=== PATIENT | male | born 1945 | race Asian ===

== ENCOUNTER 2017-12-20 20:21 | Inpatient (IN) | payer MEDICARE ==
[~2017-12-20] VITALS: Ht 165.1 cm; Wt 88.9 kg
[2017-12-20 20:21] VITALS: BP_SYST 150
[2017-12-20] MEDS ORDERED: NACL 0.9% 1,000 ML IV ONE (20:30)
[2017-12-20] MEDS ORDERED: MORPHINE 4 MG/ML INJ. SYRINGE IVP ONE (20:30)
[2017-12-20] MEDS ORDERED: NOR10 PO (20:49)
[2017-12-20] MEDS ORDERED: LISI-600 PO (20:49)
[2017-12-20] MEDS ORDERED: METF1000 PO (20:49)
[2017-12-20] MEDS ORDERED: LOVA20TA2 PO (20:49)
[2017-12-20] MEDS ORDERED: METO25TA6 PO (20:49)
[2017-12-20 20:56] LABS: BASOPHILS % (AUTO) 0.4 % (0.0-2.0); EOSINOPHILS # (AUTO) 0.2 K/uL (0.0-0.4); EOSINOPHILS % (AUTO) 2.1 % (0.0-4.0); HEMATOCRIT 35.9 % (36-54); HEMOGLOBIN 12.4 g/dL (14.0-18.0); LYMPHOCYTES # (AUTO) 1.7 K/uL (1.0-5.5); LYMPHOCYTES % (AUTO) 17.7 % (20.5-51.5); MEAN CORPUSCULAR HEMOGLOBIN 27 pg (27-31); MEAN CORPUSCULAR HGB CONC 34 % (32-36); MEAN CORPUSCULAR VOLUME 79 fL (79.0-98.0); MONOCYTES # (AUTO) 0.8 K/uL (0.0-1.0); MONOCYTES % (AUTO) 8.7 % (1.7-9.3); NEUTROPHILS # (AUTO) 7.1 K/uL (1.8-7.7); NEUTROPHILS % (AUTO) 71.1 % (40.0-70.0); PLATELET COUNT (AUTO) 285 K/uL (130-430); RED BLOOD CELL COUNT(AUTO) 4.58 MIL/uL (4.2-6.2); RED CELL DISTRIBUTION WIDTH 14.1 % (9.0-15.0); WHITE BLOOD COUNT (AUTO) 9.8 K/uL (4.8-10.8)
[2017-12-20 21:07] LABS: ANION GAP 9 (5-15); CALCIUM 9.5 mg/dL (8.4-11.0); CHLORIDE 102 mmol/L (98-107); CREATININE 0.87 mg/dL (0.55-1.30); GLUCOSE 123 mg/dL (70-99); POTASSIUM 3.8 mmol/L (3.5-5.1); SODIUM SERUM 137 mmol/L (136-145); UREA NITROGEN, BLOOD 11 mg/dL (8-21)
[2017-12-20 21:13] LABS: ALANINE AMINOTRANSFERASE 22 U/L (12-78); ALBUMIN 3.6 g/dL (3.4-4.8); ASPARTATE AMINOTRANSFERASE 14 U/L (10-37); TOTAL BILIRUBIN 0.3 mg/dL (0.0-1.0)
[2017-12-20] MEDS ORDERED: ACETAMINOPHEN 325 MG TABLET PO PRN (22:15)
[2017-12-20] MEDS ORDERED: INSULIN ASPART 100 UNITS/ML, 10 ML VIAL (NovoLOG) SUBCUT PRN (22:15)
[2017-12-20] MEDS ORDERED: POTASSIUM CHLORIDE 20 MEQ TAB.PRT.SR PO PRN (22:15)
[2017-12-20] MEDS ORDERED: MORPHINE 2 MG/ML INJ. SYRINGE IVP PRN ×2 (22:15)
[2017-12-20] MEDS ORDERED: DEXTROSE 50% JECT 50 ML DISP.SYRIN IVP PRN (22:15)
[2017-12-20] MEDS ORDERED: NACL 0.9% 1,000 ML IV SCH (22:15)
[2017-12-20] MEDS ORDERED: MAGNESIUM SULFATE 50 ML IV PRN (22:15)
[2017-12-20] MEDS ORDERED: MUPIROCIN 2% TOPICAL OINTMENT 22 GM NS PRN (22:15)
[2017-12-20] MEDS ORDERED: ZOLPIDEM TARTRATE 5 MG TABLET PO PRN (22:15)
[2017-12-20] MEDS ORDERED: DOCUSATE SODIUM 100 MG CAPSULE PO PRN (22:15)
[2017-12-20] MEDS ORDERED: ONDANSETRON HCL 4 MG/2 ML VIAL IVP PRN (22:15)
[2017-12-20] MEDS ORDERED: LORazepam 2 MG/ML VIAL IVP PRN (22:15)
[2017-12-20 22:20] VITALS: BP_SYST 147
[2017-12-20 22:45] LABS: BILIRUBIN,URINE NEGATIVE (NEGATIVE); BLOOD, URINE NEGATIVE (NEGATIVE); CLARITY/URINE CLEAR (CLEAR); COLOR,URINE YELLOW (YELLOW); GLUCOSE,URINE NEGATIVE (NEGATIVE); KETONES,URINE TRACE (NEGATIVE); LEUKOCYTE ESTERASE ,URINE NEGATIVE (NEGATIVE); NITRITE, URINE NEGATIVE (NEGATIVE); PH,URINE 5.5 (5.0-8.0); PROTEIN URINE NEGATIVE (NEGATIVE); UROBILINOGEN,URINE 0.2 (0.2-1.0)
[2017-12-21 01:00] VITALS: BP_SYST 144
[2017-12-21 08:00] VITALS: BP_SYST 138
[2017-12-21] MEDS ORDERED: metFORMIN HCL 500 MG TABLET PO SCH (08:00)
[2017-12-21 08:16] LABS: BASOPHILS % (AUTO) 0.5 % (0.0-2.0); EOSINOPHILS # (AUTO) 0.2 K/uL (0.0-0.4); EOSINOPHILS % (AUTO) 2.1 % (0.0-4.0); HEMATOCRIT 35.2 % (36-54); LYMPHOCYTES # (AUTO) 1.3 K/uL (1.0-5.5); MEAN CORPUSCULAR HEMOGLOBIN 27 pg (27-31); MEAN CORPUSCULAR HGB CONC 34 % (32-36); MEAN CORPUSCULAR VOLUME 78 fL (79.0-98.0); MONOCYTES # (AUTO) 0.7 K/uL (0.0-1.0); MONOCYTES % (AUTO) 9.1 % (1.7-9.3); NEUTROPHILS # (AUTO) 5.7 K/uL (1.8-7.7); NEUTROPHILS % (AUTO) 71.3 % (40.0-70.0); PLATELET COUNT (AUTO) 225 K/uL (130-430); RED BLOOD CELL COUNT(AUTO) 4.49 MIL/uL (4.2-6.2); RED CELL DISTRIBUTION WIDTH 13.8 % (9.0-15.0); WHITE BLOOD COUNT (AUTO) 7.9 K/uL (4.8-10.8)
[2017-12-21] MEDS ORDERED: MORPHINE 4 MG/ML INJ. SYRINGE IVP PRN ×2 (08:18→08:19)
[2017-12-21 08:59] LABS: ANION GAP 9 (5-15); CALCIUM 8.8 mg/dL (8.4-11.0); CHLORIDE 103 mmol/L (98-107); CREATININE 0.72 mg/dL (0.55-1.30); GLUCOSE 138 mg/dL (70-99); SODIUM SERUM 138 mmol/L (136-145); UREA NITROGEN, BLOOD 9 mg/dL (8-21)
[2017-12-21] MEDS ORDERED: METOPROLOL TARTRATE 25 MG TABLET PO SCH (09:00)
[2017-12-21] MEDS ORDERED: LOVASTATIN 20 MG TABLET PO SCH ×2 (09:00→18:00)
[2017-12-21] MEDS ORDERED: HEPARIN SODIUM,PORCINE 5000 UNITS/ML VIAL SUBCUT SCH (09:00)
[2017-12-21] MEDS ORDERED: amLODIPine BESYLATE 10 MG TABLET PO SCH (09:00)
[2017-12-21] MEDS ORDERED: ISOSORBIDE MONONITRATE 30 MG TAB.ER.24H PO SCH (09:00)
[2017-12-21] MEDS ORDERED: LISINOPRIL 20 MG TABLET PO SCH (09:00)
[2017-12-21 09:36] VITALS: BP_SYST 118
[2017-12-21] MEDS ORDERED: SIMVASTATIN 10 MG TABLET PO SCH (18:00)
== END 2017-12-21 10:08 | disposition home or self-care (01) | DRG 303 ==
LOC: SED 20:21 → STU 21:51
PROVIDERS: ADMIT General Practice; ATTEND General Practice
DX: I25.119 Atherosclerotic heart disease of native coronary artery with unspecified angina pectoris (principal); E11.69 Type 2 diabetes mellitus with other specified complication; D64.9 Anemia, unspecified; E78.5 Hyperlipidemia, unspecified; I10 Essential (primary) hypertension; Z82.49 Family history of ischemic heart disease and other diseases of the circulatory system; Z95.1 Presence of aortocoronary bypass graft; Z79.899 Other long term (current) drug therapy
CPT/HCPCS: 36415; 71045; 80048; 80053; 81003; 82962; 83735-TC; 83880; 84484; 85025; 93005; 96361; 96374; 99285; J1644; J2270; J7030